=== PATIENT | male | born 1945 | race Caucasian/White ===

== ENCOUNTER → 2021-01-17 | Outpatient (CLI) | payer MEDICARE | LOC: COL.RAD 10:27 | DX: K21.9 Gastro-esophageal reflux disease without esophagitis (principal); M25.511 Pain in right shoulder ==

== ENCOUNTER → 2021-05-14 | Outpatient (CLI) | payer MEDICARE | LOC: COL.RAD 07:57 | DX: R13.10 Dysphagia, unspecified (principal); M25.511 Pain in right shoulder ==

== ENCOUNTER 2021-06-03 08:45 | Outpatient (RCR) | payer MEDICARE | END 2021-06-14 | disposition home or self-care (01) | LOC: WSST | DX: R13.10 Dysphagia, unspecified (principal) ==